=== PATIENT | female | born 1980 ===

== ENCOUNTER 2025-04-05 06:00 | Day surgery (SDC) | payer OTHER ==
[2025-03-29 12:22] VITALS: BP 138/79
[~2025-04-05] VITALS: Ht 157.5 cm; Wt 136.1 kg
[~2025-04-05 06:00] MED LIST: CRESTOR40 MG; DIOVAN320 MG; SYNTHROID100 MCG PO; ZOLOFT50 MG PO
[2025-04-05] MEDS ORDERED: IBU600 MG PO (08:32)
[2025-04-05 16:15] VITALS: BP 112/71; O2SAT 100
== END 2025-04-05 13:20 | disposition home or self-care (01) ==
LOC: CIR.AMB 06:00
PROVIDERS: ATTEND Obstetrics & Gynecology Gynecology
DX: N84.0 Polyp of corpus uteri (principal); N72 Inflammatory disease of cervix uteri; D25.0 Submucous leiomyoma of uterus